=== PATIENT | female | born 1935 | race Caucasian/White ===

== ENCOUNTER 2024-11-26 20:50 | Emergency (ER) | payer MEDICARE, OTHER, SELFPAY ==
[2024-11-26 20:51] VITALS: BP 151/73
[2024-11-26 20:55] VITALS: BP 151/73
[2024-11-26 21:00] VITALS: BP 159/65
[2024-11-26 21:10] LABS: % Basophils 0.5 % (0-2); % Eosinophils 0.4 % (0-6); % Immature Granulocytes 0.6 % (0-0.5); % Lymphocytes 10.3 % (20.5-51.1); % Monocytes 7.3 % (1.7-9.3); % Neutrophils 80.9 % (42.2-75.2); Absolute Basophils 0.1 10^3/uL (0-0.2); Absolute Immature Granulocytes 0.1 10^3/uL (0-0.05); Absolute Monocytes 0.7 10^3/uL (0.1-0.6); Hematocrit 36.7 % (37.0-47.0); Hemoglobin 12.4 g/dL (12.0-16.0); Mean Corp Hgb Conc. 33.8 g/dL (33.0-37.0); Mean Corpuscular Hgb 31.8 pg (27.0-31.0); Mean Corpuscular Volume 94.1 fL (81.0-99.0); Mean Platelet Volume 10.9 fL (7.4-10.4); Nucleated Red Blood Cells % 0 %; Platelet Count 156 10^3/uL (130-400); Red Cell Dist. Width 13.2 % (11.5-14.5); White Blood Cell Count 9.9 10^3/uL (4.8-10.8)
[2024-11-26 21:29] LABS: ALT (SGPT) 16 U/L (0-35); AST (SGOT) 24 U/L (14-36); Albumin 4.8 g/dl (3.5-5.0); Alkaline Phosphatase 166 U/L (38-126); Blood Urea Nitrogen 21 mg/dl (7-17); Calcium 9.6 mg/dl (8.4-10.2); Carbon Dioxide 28 mmol/L (22-30); Chloride 101 mmol/L (98-107); Glucose 127 mg/dl (70-99); Potassium 4.3 mmol/L (3.5-5.1); Sodium 139 mmol/L (135-145); Total Bilirubin 0.9 mg/dl (0.2-1.3); Total Protein 7.4 g/dl (6.3-8.2); eGFR > 60.00
--- NOTE | 2024-11-26 21:37 | ED.GENMED ---
History of Present Illness
General
Chief Complaint: Back Pain
Source: patient and family (Daughter who is at the bedside)
Exam Limitations: none
Time Seen by Provider: 11/26/24 21:14
Nursing documentation reviewed up to this point in time: agreed with
History of Present Illness
History of Present Illness:
The patient is an 89-year-old female the past medical history of chronic low back pain on oxycodone, who reports sudden onset of nausea, vomiting and diarrhea that started around 8 PM this evening. Patient reports chills and generalized fatigue.
Patient also reports ongoing severe mid to lower back pain, which she and her daughter report is completely chronic and typical for her. Patient denies recent injury, urinary symptoms, and weakness or numbness of the legs. Patient reports she is
due to take her typical oxycodone for her back pain. She currently feels slightly nauseous. She denies abdominal pain.
Past History
Past History
ED Past Medical History: HTN, Hypercholesterolemia, Hypothyroidism and Other (Chronic back pain)
ED Past Surgical History: Orthopedic
Social History
Tobacco: Non-smoker
Alcohol: None
Drug: None
Personal: Single
Living: with family
Employment: Retired
Family History
Family History: Other
Review of Systems
Review of Systems
Allergies reviewed?: Yes
All Other Systems: ROS reviewed and negative except as documented in HPI and ROS
Constitutional: Reports fatigue and chills
EENT: Reports no symptoms
Respiratory: Reports no symptoms
Cardiac: Reports no symptoms
ABD/GI: Reports nausea, vomiting, diarrhea and anorexia
: Reports no symptoms
Musculoskeletal: Reports back pain
Skin: Reports no symptoms
Neurological: Reports no symptoms
Endocrine: Reports no symptoms
Hematologic/Lymphatic: Reports no symptoms
Psychiatric: Reports no symptoms
Phy Exam
Physical Exam
Physical Exam:
Physical Exam
General: no apparent distress, not acutely ill
Neck: supple. no meningeal signs. normal psoterior pharynx
Heart: s1/s2 regular rate and rhythm,
Lungs: no acute respiratory distress. clear bilaterally
Abdomen: Soft and nontender throughout. Normal bowel sounds. Diffuse upper paralumbar spine tenderness without any specific bony tenderness
Neuro: alert and oriented. no focal neurological deficits
Skin: no rash
Psychiatric: well kept. interactive and cooperative
Extremities: no edema. no calf tenderness. negative homans. good distal pulses
Course
Orders/Labs/Results
Orders:
Orders
11/26/24 20:59
EKG [Electrocardiogram (*1)] Urgent
Reason for Study: Fatigue / Weakness
EKG- Treatment ONCE
11/26/24 21:03
COVID-19 Antigen Urgent
Source: Nasal Swab
Complete Blood Count/With Diff Urgent
Comprehensive Metabolic Panel Urgent
Influenza A+B Rapid Molecular Urgent
RUPA Source: Nasal Swab
Specimen Description:
11/26/24 21:30
0.9% Sodium Chloride 1000 ml [Nss] 1,000 ml IV BOLUS
Ondansetron Injectable [Zofran] 4 mg IV NOW STA
Tramadol HCl [Ultram] 50 mg PO NOW STA
11/26/24 21:32
Oxycodone [Roxicodone] 5 mg PO NOW STA
Abnormal Lab Results
11/26/24
21:03
RBC 3.90 L 10^6/uL
(4.20-5.40)
Hct 36.7 L %
(37.0-47.0)
MCH 31.8 H pg
(27.0-31.0)
MPV 10.9 H fL
(7.4-10.4)
Abs Immat Gran (auto) 0.1 H 10^3/uL
(0-0.05)
Absolute Neuts (auto) 8.0 H 10^3/uL
(1.4-6.5)
Absolute Lymphs (auto) 1.0 L 10^3/uL
(1.2-3.4)
Absolute Monos (auto) 0.7 H 10^3/uL
(0.1-0.6)
Immature Gran % 0.6 H %
(0-0.5)
Neutrophils % 80.9 H %
(42.2-75.2)
Lymphocytes % 10.3 L %
(20.5-51.1)
BUN 21 H mg/dl
(7-17)
Glucose 127 H mg/dl
(70-99)
Alkaline Phosphatase 166 H U/L
(38-126)
11/26/24 21:03
11/26/24 21:03
Vital Signs
Initial and Last Documented VS:
Initial Vital Signs
Temp Pulse Resp BP Pulse Ox
99.1 F 68 22 151/73 95
11/26/24 20:51 11/26/24 20:51 11/26/24 20:51 11/26/24 20:51 11/26/24 20:51
Last Documented Vital Signs
Temp Pulse Resp BP Pulse Ox
99.1 F 62 16 159/65 94
11/26/24 20:51 11/26/24 21:30 11/26/24 21:00 11/26/24 21:00 11/26/24 21:30
MDM/Problems Addressed
Differential Diagnosis Includes:
Acute gastroenteritis, acute pyelonephritis, acute cholecystitis
MDM/Problems Addressed:
Patient presents with acute vomiting and diarrhea
*Pulse Oximetry
Patient hypoxic: no
*EKG
Interpreted by ED Provider?: NA
*Beading Sawyer Interpretation
Rate: Beading Sawyer- N/A
*Critical Care Note
Total Time (30-74mins, 75-104mins- exclusive of procedures): Not Applicable
Data Reviewed
Source: patient and family
Patient Management
Social determinants of health affecting care: Living situation and Strong social support
Escalation/DeEscalation of care consider admission/obs:
Patient and her daughter report that the patient's back pain is her very typical back pain that she has every day. They do not feel an x-ray is necessary, especially because she has not had any trauma or falls.
10:20 PM patient adamantly denies any abdominal pain and states she feels better. Given that she has no abdominal tenderness or pain, I do not think she needs a CAT scan of her abdomen. Patient likely has gastroenteritis. Patient encouraged to
return with any abdominal pain or inability to keep fluids down.
ED Attending Note
-
Portions of this chart may have been created with voice recognition software.� Occasional wrong word or��sound alike� substitutions may have occurred due to the inherent limitations of voice recognition software.
Discharge Plan
Departure
Patient Disposition: Home (Routine Discharge)
Date of Disposition: 11/26/24
Time of Disposition: 22:16
Patient with high blood pressure during this ER visit?: Yes
Condition: Good
Covid-19: Not Applicable
Discharge Problem:
Chronic low back pain, Gastroenteritis
Instructions: Viral gastroenteritis in adults, [place] Diet, Low back pain - ED discharge instructions, BLOOD PRESSURE
Prescriptions:
New
ondansetron 4 mg tablet,disintegrating
4 mg PO Q8H PRN (Reason: nausea and vomiting) Qty: 10 0RF
No Action
atorvastatin 10 MG tablet
10 mg PO DAILY
levothyroxine 75 MCG tablet
75 mcg PO DAILY
omeprazole 40 MG capsule,delayed release(DR/EC)
40 mg PO DAILY
multivitamin with folic acid [Tab-A-Swapna] 1 TABLET tablet
1 tab PO DAILY
acetaminophen 325 MG tablet
650 mg PO Q4HPRN PRN (Reason: moderate pain) 0RF
polyethylene glycol 3350 17 GRAMS powder in packet
17 grams PO DAILY 0RF
egjoeyafp-ydswvyks-puigj-w.pet [Preparation H Maximum Strength] 1 APPLIC cream
0 applic NV Q6HPRN PRN (Reason: Hemorrhoids) 0RF
tramadol [Ultram] 50 MG tablet
25 mg PO Q8H PRN (Reason: Mod Sev Pain) Qty: 15 0RF
diazepam 2 MG tablet
1 mg PO HS PRN (Reason: Back Spasm) Qty: 5 0RF
docusate sodium [Colace] 100 MG capsule
100 mg PO BID Qty: 60 0RF
Referrals:
Agusto Mirelse DO [Family Provider] -
Activity Restrictions/Additional Instructions:
Return with any weakness or numbness of legs. Return if you are unable to keep down any fluids.
Interventions
Interventions:
*Risk Screen - Suicide Last Done: 11/26/24 20:51
*General Assessment Last Done: 11/26/24 20:51
*Neglect/Abuse Screening Last Done: 11/26/24 20:51
ED- Fall Risk Assessment Last Done: 11/26/24 21:51
WO-Dfuawm-Ubadmgpoih Assessment Last Done: 11/26/24 21:51
ED-Musculoskeletal Assessment Last Done: 11/26/24 21:51
Discharge Date and Time
Print Language: SALVADOREAN
[2024-11-26] MEDS: NSS 1000 IV (21:41)
[2024-11-26] MEDS: ROXICODONE 5 MG PO (21:41)
[2024-11-26] MEDS: ZOFRAN 4 MG IV (21:41)
[2024-11-26 21:45] LABS: COVID-19 Antigen Negative (Negative)
== END 2024-11-26 22:40 | disposition home or self-care (01) ==
LOC: EMR 20:50
PROVIDERS: EMERGENCY PHYSICIAN Emergency Medicine; FAMILY PHYSICIAN Internal Medicine
DX: M54.50 Low back pain, unspecified (principal); R11.2 Nausea with vomiting, unspecified; R19.7 Diarrhea, unspecified; R53.83 Other fatigue; Z11.52 Encounter for screening for COVID-19; K52.9 Noninfective gastroenteritis and colitis, unspecified; I10 Essential (primary) hypertension; E78.00 Pure hypercholesterolemia, unspecified; E03.9 Hypothyroidism, unspecified; K21.9 Gastro-esophageal reflux disease without esophagitis; G89.29 Other chronic pain; Z86.73 Personal history of transient ischemic attack (TIA), and cerebral infarction without residual deficits; Z79.891 Long term (current) use of opiate analgesic; Z88.5 Allergy status to narcotic agent
CPT/HCPCS: 99284; 96374; 96361; 80053; 85025; 87502; 87811; 93005